=== PATIENT | male | born 1980 | race Caucasian/White ===

== ENCOUNTER 2018-04-01 12:24 | Inpatient (IN) | payer OTHER ==
[2018-04-01 13:47] VITALS: BMI 19.2
--- NOTE | 2018-04-01 18:29 | HP ---
"<Mojgan Felder - Last Filed: 04/01/18 18:59> COWS - Scale Resting Pulse: 0= [place] 80 or Below Sweatin= Beads of Sweat on Face Restless Observation: 3= Extraneous Movement Pupil Size: 2= Moderately Dilated Bone or Joint Aches: 1= Mild Discomfort Runny Nose/ Eye Tearin= Nasal Congestion GI Upset > 30mins: 0= None Tremor Observation: 2= Slight Tremor Visible Yawning Observation: 0= None Anxiety or Irritability: 2=Irritable/Anxious Goose Flesh Skin: 0=Smooth Skin COWS Score: 14 Admission ROS [facility] Chief Complaint: Here for heroin and cocaine detox. Allergies/Adverse Reactions: Allergies Allergy/AdvReac Type Severity Reaction Status Date / Time No Known Allergies Allergy Verified 04/01/18 15:37 History of Present Illness: 37 yom w/ hx heroin dependency since age 18. Has had multiple attempts at detox and rehab. Longest length of sobriety is 1 year. Uses heroin IV daily. Uses a needle exchange program and does not share works. Smokes cocaine and has been using since age 20. Uses about 1-2 x/week. Nicotine use since age 18. Denies seizures.Denies significant PMH/PSH. Search Terms: [place], 1980 Search Date: 04/01/2018 06:20:04 PM The Drug Utilization Report below displays all of the controlled substance prescriptions, if any, that your patient has filled in the last twelve months. The information displayed on this report is compiled from pharmacy submissions to the Department, and accurately reflects the information as submitted by the pharmacies. This report was requested by: Mojgan Felder | Reference #: [id number] There are no results for the search terms that you entered. Exam Limitations: No Limitations - Ebola screening Have you traveled outside of the country in the last 21 days: No Have you had contact with anyone from an Ebola affected area: No Have you been sick,other than usual withdrawal symptoms: No Do you have a fever: No - Review of Systems Constitutional: Chills EENT: reports: Nose Congestion Respiratory: reports: No Symptoms reported Cardiac: reports: No Symptoms Reported GI: reports: Constipated (BM every other day. Denies black or tarry stool.) : reports: No Symptoms Reported Musculoskeletal: reports: Other (Generalized bone pain in arms r/t withdrawal) Integumentary: reports: No Symptoms Reported Neuro: reports: Tremors (r/t withdrawal) Endocrine: reports: No Symptoms Reported Hematology: reports: No Symptoms Reported Psychiatric: reports: Judgement Intact, Orientated x3, Agitated (r/t w/drawal), Anxious (r/t w/drawal), other (Denies thoughts of self-harm) Patient History - Patient Medical History Hx Anemia: No Hx Asthma: No Hx Chronic Obstructive Pulmonary Disease (COPD): No Hx Cancer: No Hx Cardiac Disorders: No Hx Congestive Heart Failure: No Hx Hypertension: No Hx Hypercholesterolemia: No Hx Pacemaker: No HX Cerebrovascular Accident: No Hx Seizures: No Hx Dementia: No Hx Diabetes: No Hx Gastrointestinal Disorders: No Hx Liver Disease: Yes (Hep C) Hx Genitourinary Disorders: No Hx Sexually Transmitted Disorders: No Hx Renal Disease (ESRD): No Hx Thyroid Disease: No Hx Human Immunodeficiency Virus (HIV): No Hx Hepatitis C: Yes (No treatment) Hx Depression: No (Denies suicide or violent ideation) Hx Suicide Attempt: No Hx Bipolar Disorder: No Hx Schizophrenia: No - Patient Surgical History Past Surgical History: Yes Hx Neurologic Surgery: No Hx Cataract Extraction: No Hx Cardiac Surgery: No Hx Lung Surgery: No Hx Breast Surgery: No Hx Breast Biopsy: No Hx Abdominal Surgery: No Hx Appendectomy: No Hx Cholecystectomy: No Hx Genitourinary Surgery: No Hx Section: No Hx Orthopedic Surgery: Yes (right mandible in 2015) Anesthesia Reaction: No - PPD History Previous Implant?: Yes Documented Results: Negative w/o proof Implanted On Prior [facility] Admission?: No PPD to be Administered?: Yes - Smoking Cessation Smoking history: Current every day smoker Have you smoked in the past 12 months: Yes Aproximately how many cigarettes per day: 10 Hx Chewing Tobacco Use: No Initiated information on smoking cessation: Yes 'Breaking Loose' booklet given: 04/01/18 - Substance & Tx. History Hx Alcohol Use: No Hx Substance Use: Yes Substance Use Type: Cocaine, Heroin Hx Substance Use Treatment: Yes (detox and rehab in past. Last detox 4 months ago.) - Substances Abused Heroin Route: Injection Frequency: Daily Amount used: 10 bags Age of first use: 18 Date of Last Use: 03/31/18 Cocaine Route: Smoking Frequency: 1-2 times per week Amount used: 1 gm Age of first use: 20 Date of Last Use: 03/29/18 Admission Physical Exam [facility] - Vital Signs Vital Signs: Vital Signs - 24 hr 04/01/18 13:46 Temperature 97.6 F Pulse Rate 57 L Respiratory 19 Rate Blood Pressure 117/70 - Physical General Appearance: Yes: Mild Distress, Tremorous (Slight tremor hands upon extension), Sweating, Anxious HEENTM: Yes: Hearing grossly Normal, Normocephalic, Normal Voice, NINA (Pupils dilated at 4 mm) Respiratory: Yes: Chest Non-Tender, Lungs Clear, Normal Breath Sounds, No Respiratory Distress Neck: Yes: No masses,lesions,Nodules, Supple Breast: Yes: Breast Exam Deferred Cardiology: Yes: Regular Rhythm, S1, S2, Bradycardia (Heart rate 56.) Abdominal: Yes: Normal Bowel Sounds, Non Tender, Flat, Soft Genitourinary: Yes: Within Normal Limits Back: Yes: Normal Inspection Musculoskeletal: Yes: full range of Motion, Gait Steady Extremities: Yes: Normal Capillary Refill, Normal Range of Motion, Non-Tender, Tremors (Slight tremor of hands upon extension) Neurological: Yes: counter maker II-XII NML intact, Fully Oriented, Alert, Motor Strength 5/5 Integumentary: Yes: Normal Color, Dry, Warm, Track Whitaker (antecubital area. No increased erythema or warmth.), Other (Superficial abrasion on nose and (R) aguilera.) Lymphatic: Yes: Within Normal Limits - Diagnostic (1) Opioid dependence with withdrawal Current Visit: Yes Status: Acute (2) Cocaine abuse, uncomplicated Current Visit: Yes Status: Acute (3) Nicotine dependence with withdrawal Current Visit: Yes Status: Acute Qualifiers: Nicotine product type: cigarettes Qualified Code(s): F17.213 - Nicotine dependence, cigarettes, with withdrawal (4) Bradycardia Current Visit: Yes Status: Chronic (5) Superficial abrasion Current Visit: Yes Status: Acute Cleared for Admission [facility] - Detox or Rehab [facility] Level of Care: Medically Managed Detox Regimen/Protocol: Methadone [facility] Breath Alcohol Content Breath Alcohol Content: 0 Urine Drug Screen - Results Drug Screen Negative: No Urine Drug Screen Results: SAKSHI-Cocaine, OPI-Opiates <Katina Hagan - Last Filed: 04/02/18 12:16> Admission Physical Exam [facility] - Vital Signs Vital Signs: Vital Signs - 24 hr 04/01/18 04/01/18 04/02/18 13:46 21:58 00:30 Temperature 97.6 F 97.9 F Pulse Rate 57 L 62 Respiratory 19 18 18 Rate Blood Pressure 117/70 126/74 04/02/18 04/02/18 04/02/18 03:30 07:57 09:16 Temperature 97.9 F 96.8 F L Pulse Rate 55 L 89 Respiratory 18 16 18 Rate Blood Pressure 121/64 109/75"
[2018-04-01] MEDS ORDERED: MENTHOL/PHENOL 1 EACH UD MM PRN (18:53)
[2018-04-01] MEDS ORDERED: IBUPROFEN 400 MG TABLET (FP) PO PRN (18:53)
[2018-04-01] MEDS ORDERED: MAG HYDROX/AL HYDROX/SIMETH 30 ML UNIT-DOSE CUP PO PRN (18:53)
[2018-04-01] MEDS ORDERED: MAGNESIUM CITRATE 300 ML BOTTLE PO PRN (18:53)
[2018-04-01] MEDS ORDERED: MAGNESIUM HYDROX 2400MG/30ML ORAL SUSPENSION 30 ML CUP PO PRN (18:53)
[2018-04-01] MEDS ORDERED: P-EPHED 60MG/TRIPROLIDI 2.5MG TABLET PO PRN (18:53)
[2018-04-01] MEDS ORDERED: METHADONE HCL 10 MG TABLET (FOR DETOX USE ONLY) PO ONE ×2 (18:53→23:00)
[2018-04-01] MEDS ORDERED: guaiFENesin/D-METHORPHAN HB 10 ML UNIT-DOSE CUPS PO PRN (18:53)
[2018-04-01] MEDS ORDERED: diazePAM 5 MG TABLET PO PRN (18:53)
[2018-04-01] MEDS ORDERED: LOPERAMIDE HCL 2 MG CAPSULE PO PRN (18:53)
[2018-04-01] MEDS ORDERED: ACETAMINOPHEN 325 MG TABLET (FP) PO PRN (18:53)
[2018-04-01] MEDS: NICOTINE POLACRILEX 2 MG GUM BC PRN (20:02)
[2018-04-01] MEDS: BACITRACIN 0.9 GM PACKET TP SCH (23:00)
[2018-04-01] MEDS: THIAMINE HCL 100 MG TABLET (FP) PO SCH (23:01)
--- NOTE | 2018-04-02 08:09 | CONSULT ---
[facility] Psychiatric Consult - Data Date of interview: 04/02/18 Admission source: [facility] Identifying data: This is 37 years old male, 2ingle, with no children, living with brother, unemployed , with no income, wit5h no psychiatric hospitalization history, with long history of Heroin, Cocaine and Nicxotine dependence, reporting withdrawal symptoms and seeking for detox. Substance Abuse History: Smoking history: Current every day smoker. Have you smoked in the past 12 months: Yes. Aproximately how many cigarettes per day: 10. Hx Chewing Tobacco Use: No. Initiated information on smoking cessation: Yes. 'Breaking Loose' booklet given: 04/01/18. - Substance & Tx. History. Hx Alcohol Use: No. Hx Substance Use: Yes. Substance Use Type: Cocaine, Heroin. Hx Substance Use Treatment: Yes (detox and rehab in past. Last detox 4 months ago.). - Substances Abused. Heroin. Route: Injection. Frequency: Daily. Amount used: 10 bags. Age of first use: 18. Date of Last Use: 03/31/18. Cocaine. Route: Smoking. Frequency: 1-2 times per week. Amount used: 1 gm. Age of first use: 20. Date of Last Use: 03/29/18 Medical History: Denies significant medical problems Psychiatric History: Patient reports no psychiatric hospitalization history, no psychiatric medications taking prior to admission Physical/Sexual Abuse/Trauma History: Denies Additional Comment: Observation. Detox Unit Care Protocol Mental Status Exam - Mental Status Exam Alert and Oriented to: Person Cognitive Function: Fair Mood: Sad Affect: Flat Patient Behavior: Sedated Speech Pattern: Delayed Voice Loudness: Mildly Soft/Quiet Thought Process: Circumstantial Thought Disorder: Being Controlled Hallucinations: Denies Suicidal Ideation: Denies Homicidal Ideation: Denies Insight/Judgement: Fair Sleep: Difficulty falling asleep Appetite: Fair Muscle strength/Tone: Mild Hypotonicity Gait/Station: Normal Additional Comments: Observation. Detox Unit Care Protocol Psychiatric Findings - Problem List ([place] 1, 2,3) (1) Drug-induced mood disorder Current Visit: Yes Status: Suspected (2) Cocaine abuse, uncomplicated Current Visit: Yes Status: Acute (3) Nicotine dependence with withdrawal Current Visit: Yes Status: Acute Qualifiers: Nicotine product type: cigarettes Qualified Code(s): F17.213 - Nicotine dependence, cigarettes, with withdrawal (4) Opioid dependence with withdrawal Current Visit: Yes Status: Acute - Initial Treatment Plan Initial Treatment Plan: Observation. Detox Unit Care Protocol
[2018-04-02] MEDS ORDERED: METHADONE HCL 10 MG TABLET (FOR DETOX USE ONLY) PO ONE (10:00)
[2018-04-02] MEDS: PRENATAL VITAMINS W/ FOLIC ACID TABLET (FP) PO SCH (10:09)
[2018-04-02] MEDS: NICOTINE 14 MG/24 HOURS TOPICAL PATCH TD SCH (10:09)
[2018-04-02] MEDS: BACITRACIN 0.9 GM PACKET TP SCH ×2 (10:09→22:20)
[2018-04-02] MEDS: NICOTINE POLACRILEX 2 MG GUM BC PRN (10:10)
[2018-04-02 10:14] LABS: HEMATOCRIT 44.5 % (35.4-49); HEMOGLOBIN 14.7 GM/dL (11.7-16.9); MEAN CELL VOLUME 90.9 fl (80-96); MEAN PLT VOLUME 8.7 fl (7.5-11.1); PLATELET COUNT 341 K/MM3 (134-434); RBC 4.89 M/mm3 (4.00-5.60); WHITE BLOOD COUNT 10.5 K/mm3 (4.0-10.0)
--- NOTE | 2018-04-02 10:47 | EKG ---
Test Reason : Blood Pressure : / mmHG Vent. Rate : 051 BPM Atrial Rate : 051 BPM P-R Int : 136 ms QRS Dur : 084 ms QT Int : 418 ms P-R-T Axes : 038 068 065 degrees QTc Int : 385 ms SINUS BRADYCARDIA OTHERWISE NORMAL ECG NO PREVIOUS ECGS AVAILABLE Confirmed by MAR MASON, PIO ([id number]) on 04/02/2018 10:47:05 AM Referred By: Confirmed By:PIO MANUEL MD
--- NOTE | 2018-04-02 12:24 | PN ---
BHS COWS - Scale Resting Pulse: 0= [place] 80 or Below Sweatin= Chills/Flushing Restless Observation: 3= Extraneous Movement Pupil Size: 1= Pupils >than Normal Bone or Joint Aches: 2= Severe Diffuse Aches Runny Nose/ Eye Tearin= Runny Nose/Eyes GI Upset > 30mins: 2= Nausea/Diarrhea Tremor Observation of Outstretched Hands: 2= Slight Tremor Visible Yawning Observation: 1= 1-2x During Session Anxiety or Irritability: 2=Irritable/Anxious Goose Flesh Skin: 0=Smooth Skin COWS Score: 16 S Progress Note (SOAP) Subjective: alert,irritable,anxious,interrupted sleep,tremor,pain in the body and back Objective: 04/02/18 12:22 Vital Signs Temperature 96.8 F L 04/02/18 09:16 Pulse Rate 89 04/02/18 09:16 Respiratory Rate 18 04/02/18 09:16 Blood Pressure 109/75 04/02/18 09:16 O2 Sat by Pulse Oximetry (%) ekg sinus bradycardia 51/min qt/tc 418/385 Laboratory Last Values WBC 10.5 K/mm3 (4.0-10.0) H 04/02/18 07:30 RBC 4.89 M/mm3 (4.00-5.60) 04/02/18 07:30 Hgb 14.7 GM/dL (11.7-16.9) 04/02/18 07:30 Hct 44.5 % (35.4-49) 04/02/18 07:30 MCV 90.9 fl (80-96) 04/02/18 07:30 MCH 30.0 pg (25.7-33.7) 04/02/18 07:30 MCHC 33.0 g/dl (32.0-35.9) 04/02/18 07:30 RDW 15.0 % (11.9-15.9) 04/02/18 07:30 Plt Count 341 K/MM3 (134-434) 04/02/18 07:30 MPV 8.7 fl (7.5-11.1) 04/02/18 07:30 labs pending Assessment: 04/02/18 12:24 withdrawal symptom Plan: continue detox
[2018-04-02] MEDS ORDERED: CYCLOBENZAPRINE HCL 10 MG TABLET (FP) PO PRN (12:27)
[2018-04-02 14:19] LABS: ALBUMIN 3.5 g/dl (3.4-5.0); ANION GAP 6 (8-16); BILIRUBIN,TOTAL 0.3 mg/dL (0.2-1.0); BLOOD UREA NITROGEN 19 mg/dL (7-18); CALCIUM 9.4 mg/dL (8.5-10.1); CHLORIDE 107 mmol/L (98-107); CO2 30 mmol/L (21-32); GLUCOSE,RANDOM 112 mg/dL (74-106); POTASSIUM 4.6 mmol/L (3.5-5.1); SGOT/AST 61 U/L (15-37); SGPT/ALT 96 U/L (12-78); SODIUM 143 mmol/L (136-145)
[2018-04-02 14:20] LABS: ALK PHOS 124 U/L (45-117); TOT PROT 7.8 g/dl (6.4-8.2)
[2018-04-02 18:20] LABS: URINE APPEARANCE TURBID; URINE BILIRUBIN NEGATIVE (<2.0 mg/dL); URINE COLOR YELLOW; URINE GLUCOSE (UA) NEGATIVE (NEGATIVE); URINE KETONE NEGATIVE (NEGATIVE); URINE LEUK ESTERASE NEGATIVE (NEGATIVE); URINE NITRITE NEGATIVE (NEGATIVE); URINE PROTEIN NEGATIVE (NEGATIVE); URINE UROBILINOGEN NEGATIVE mg/dL (0.2-1.0)
[2018-04-02] MEDS: cloNIDine HCL 0.1 MG TABLET PO SCH (22:20)
[2018-04-02] MEDS: MELATONIN 5 MG TABLETS PO PRN (22:20)
[2018-04-02] MEDS: THIAMINE HCL 100 MG TABLET (FP) PO SCH (22:20)
[2018-04-03] MEDS ORDERED: METHADONE HCL 5 MG TABLET (FOR DETOX USE ONLY) PO ONE (10:00)
[2018-04-03] MEDS: PRENATAL VITAMINS W/ FOLIC ACID TABLET (FP) PO SCH (10:56)
[2018-04-03] MEDS: cloNIDine HCL 0.1 MG TABLET PO SCH ×2 (10:56→22:11)
[2018-04-03] MEDS: NICOTINE 14 MG/24 HOURS TOPICAL PATCH TD SCH (10:56)
[2018-04-03] MEDS: BACITRACIN 0.9 GM PACKET TP SCH ×2 (10:57→22:11)
--- NOTE | 2018-04-03 11:32 | PN ---
BHS COWS - Scale Resting Pulse: 0= [place] 80 or Below Sweatin= Chills/Flushing Restless Observation: 3= Extraneous Movement Pupil Size: 1= Pupils >than Normal Bone or Joint Aches: 2= Severe Diffuse Aches Runny Nose/ Eye Tearin= Runny Nose/Eyes GI Upset > 30mins: 2= Nausea/Diarrhea Tremor Observation of Outstretched Hands: 2= Slight Tremor Visible Yawning Observation: 1= 1-2x During Session Anxiety or Irritability: 2=Irritable/Anxious Goose Flesh Skin: 0=Smooth Skin COWS Score: 16 BHS Progress Note (SOAP) Subjective: alert,irritable,anxious,tremor,pain in the body and back Objective: 04/03/18 11:30 Vital Signs Temperature 98 F 04/03/18 09:22 Pulse Rate 59 L 04/03/18 09:22 Respiratory Rate 18 04/03/18 09:22 Blood Pressure 114/58 04/03/18 09:22 O2 Sat by Pulse Oximetry (%) Laboratory Last Values WBC 10.5 K/mm3 (4.0-10.0) H 04/02/18 07:30 RBC 4.89 M/mm3 (4.00-5.60) 04/02/18 07:30 Hgb 14.7 GM/dL (11.7-16.9) 04/02/18 07:30 Hct 44.5 % (35.4-49) 04/02/18 07:30 MCV 90.9 fl (80-96) 04/02/18 07:30 MCH 30.0 pg (25.7-33.7) 04/02/18 07:30 MCHC 33.0 g/dl (32.0-35.9) 04/02/18 07:30 RDW 15.0 % (11.9-15.9) 04/02/18 07:30 Plt Count 341 K/MM3 (134-434) 04/02/18 07:30 MPV 8.7 fl (7.5-11.1) 04/02/18 07:30 Sodium 143 mmol/L (136-145) 04/02/18 07:30 Potassium 4.6 mmol/L (3.5-5.1) 04/02/18 07:30 Chloride 107 mmol/L (98-107) 04/02/18 07:30 Carbon Dioxide 30 mmol/L (21-32) 04/02/18 07:30 Anion Gap 6 (8-16) L 04/02/18 07:30 BUN 19 mg/dL (7-18) H 04/02/18 07:30 Creatinine 1.0 mg/dL (0.7-1.3) 04/02/18 07:30 Creat Clearance w eGFR > 60 (>60) 04/02/18 07:30 Random Glucose 112 mg/dL (74-106) H 04/02/18 07:30 Calcium 9.4 mg/dL (8.5-10.1) 04/02/18 07:30 Total Bilirubin 0.3 mg/dL (0.2-1.0) 04/02/18 07:30 AST 61 U/L (15-37) H 04/02/18 07:30 ALT 96 U/L (12-78) H 04/02/18 07:30 Alkaline Phosphatase 124 U/L (45-117) H 04/02/18 07:30 Total Protein 7.8 g/dl (6.4-8.2) 04/02/18 07:30 Albumin 3.5 g/dl (3.4-5.0) 04/02/18 07:30 Urine Color Yellow 04/02/18 17:00 Urine Appearance Turbid 04/02/18 17:00 Urine pH 6.0 (5.0-8.0) 04/02/18 17:00 Ur Specific [place] 1.026 (1.001-1.035) 04/02/18 17:00 Urine Protein Negative (NEGATIVE) 04/02/18 17:00 Urine Glucose (UA) Negative (NEGATIVE) 04/02/18 17:00 Urine Ketones Negative (NEGATIVE) 04/02/18 17:00 Urine Blood Negative (NEGATIVE) 04/02/18 17:00 Urine Nitrite Negative (NEGATIVE) 04/02/18 17:00 Urine Bilirubin Negative (<2.0 mg/dL) 04/02/18 17:00 Urine Urobilinogen Negative mg/dL (0.2-1.0) 04/02/18 17:00 Ur Leukocyte Esterase Negative (NEGATIVE) 04/02/18 17:00 RPR Titer Nonreactive (NONREACTIVE) 04/02/18 07:30 Assessment: 04/03/18 11:31 withdrawal symptom Plan: continue detox
[2018-04-03] MEDS: THIAMINE HCL 100 MG TABLET (FP) PO SCH (22:11)
[2018-04-04] MEDS ORDERED: METHADONE HCL 5 MG TABLET (FOR DETOX USE ONLY) PO ONE (10:00)
[2018-04-04] MEDS: BACITRACIN 0.9 GM PACKET TP SCH ×2 (10:18→22:13)
[2018-04-04] MEDS: NICOTINE 14 MG/24 HOURS TOPICAL PATCH TD SCH (10:18)
[2018-04-04] MEDS: PRENATAL VITAMINS W/ FOLIC ACID TABLET (FP) PO SCH (10:18)
[2018-04-04] MEDS: cloNIDine HCL 0.1 MG TABLET PO SCH ×2 (10:18→22:13)
--- NOTE | 2018-04-04 11:08 | PN ---
BHS Progress Note (SOAP) Subjective: alert,irritable,anxious,interrupted sleep,pain in the body Objective: 04/04/18 11:08 Vital Signs Temperature 98.1 F 04/04/18 09:46 Pulse Rate 66 04/04/18 09:46 Respiratory Rate 20 04/04/18 09:46 Blood Pressure 105/54 04/04/18 09:46 O2 Sat by Pulse Oximetry (%) Assessment: 04/04/18 11:08 withdrawal symptom Plan: continue detox
[2018-04-04] MEDS: THIAMINE HCL 100 MG TABLET (FP) PO SCH (22:13)
[2018-04-04] MEDS: MELATONIN 5 MG TABLETS PO PRN (22:14)
--- NOTE | 2018-04-05 08:56 | PN ---
S Progress Note (SOAP) Subjective: alert,irritable,anxious,interrupted sleep,pain in the body Objective: 04/05/18 08:55 Vital Signs Temperature 98.4 F 04/05/18 07:30 Pulse Rate 70 04/05/18 07:30 Respiratory Rate 18 04/05/18 07:30 Blood Pressure 106/54 04/05/18 07:30 O2 Sat by Pulse Oximetry (%) Assessment: 04/05/18 08:55 withdrawal symptom Plan: continue detox,discharge in am
[2018-04-05] MEDS ORDERED: METHADONE HCL 10 MG TABLET (FOR DETOX USE ONLY) PO ONE (10:00)
[2018-04-05] MEDS: PRENATAL VITAMINS W/ FOLIC ACID TABLET (FP) PO SCH (10:43)
[2018-04-05] MEDS: BACITRACIN 0.9 GM PACKET TP SCH ×2 (10:43→22:18)
[2018-04-05] MEDS: cloNIDine HCL 0.1 MG TABLET PO SCH ×2 (10:43→22:18)
[2018-04-05] MEDS: NICOTINE 14 MG/24 HOURS TOPICAL PATCH TD SCH (10:45)
[2018-04-05] MEDS: THIAMINE HCL 100 MG TABLET (FP) PO SCH (22:18)
[2018-04-05] MEDS: hydrOXYzine PAMOATE 50 MG CAPSULE (FP) PO PRN (22:20)
[2018-04-06] MEDS ORDERED: METHADONE HCL 5 MG TABLET (FOR DETOX USE ONLY) PO ONE (06:00)
--- NOTE | 2018-04-06 09:10 | PN ---
BHS Progress Note (SOAP) Subjective: mild opiate withdrawal sx less body ache muscle cramping sleep better at night Objective: 04/06/18 09:39 opiate withdrawal sx Vital Signs Temperature 98.2 F 04/06/18 07:42 Pulse Rate 68 04/06/18 07:42 Respiratory Rate 18 04/06/18 07:42 Blood Pressure 115/63 04/06/18 07:42 O2 Sat by Pulse Oximetry (%) Laboratory Last Values WBC 10.5 K/mm3 (4.0-10.0) H 04/02/18 07:30 RBC 4.89 M/mm3 (4.00-5.60) 04/02/18 07:30 Hgb 14.7 GM/dL (11.7-16.9) 04/02/18 07:30 Hct 44.5 % (35.4-49) 04/02/18 07:30 MCV 90.9 fl (80-96) 04/02/18 07:30 MCH 30.0 pg (25.7-33.7) 04/02/18 07:30 MCHC 33.0 g/dl (32.0-35.9) 04/02/18 07:30 RDW 15.0 % (11.9-15.9) 04/02/18 07:30 Plt Count 341 K/MM3 (134-434) 04/02/18 07:30 MPV 8.7 fl (7.5-11.1) 04/02/18 07:30 Sodium 143 mmol/L (136-145) 04/02/18 07:30 Potassium 4.6 mmol/L (3.5-5.1) 04/02/18 07:30 Chloride 107 mmol/L (98-107) 04/02/18 07:30 Carbon Dioxide 30 mmol/L (21-32) 04/02/18 07:30 Anion Gap 6 (8-16) L 04/02/18 07:30 BUN 19 mg/dL (7-18) H 04/02/18 07:30 Creatinine 1.0 mg/dL (0.7-1.3) 04/02/18 07:30 Creat Clearance w eGFR > 60 (>60) 04/02/18 07:30 Random Glucose 112 mg/dL (74-106) H 04/02/18 07:30 Calcium 9.4 mg/dL (8.5-10.1) 04/02/18 07:30 Total Bilirubin 0.3 mg/dL (0.2-1.0) 04/02/18 07:30 AST 61 U/L (15-37) H 04/02/18 07:30 ALT 96 U/L (12-78) H 04/02/18 07:30 Alkaline Phosphatase 124 U/L (45-117) H 04/02/18 07:30 Total Protein 7.8 g/dl (6.4-8.2) 04/02/18 07:30 Albumin 3.5 g/dl (3.4-5.0) 04/02/18 07:30 Urine Color Yellow 04/02/18 17:00 Urine Appearance Turbid 04/02/18 17:00 Urine pH 6.0 (5.0-8.0) 04/02/18 17:00 Ur Specific [place] 1.026 (1.001-1.035) 04/02/18 17:00 Urine Protein Negative (NEGATIVE) 04/02/18 17:00 Urine Glucose (UA) Negative (NEGATIVE) 04/02/18 17:00 Urine Ketones Negative (NEGATIVE) 04/02/18 17:00 Urine Blood Negative (NEGATIVE) 04/02/18 17:00 Urine Nitrite Negative (NEGATIVE) 04/02/18 17:00 Urine Bilirubin Negative (<2.0 mg/dL) 04/02/18 17:00 Urine Urobilinogen Negative mg/dL (0.2-1.0) 04/02/18 17:00 Ur Leukocyte Esterase Negative (NEGATIVE) 04/02/18 17:00 RPR Titer Nonreactive (NONREACTIVE) 04/02/18 07:30 lab noted Assessment: 04/06/18 09:41 mild opiate withdrawal sx Plan: medically supervised opiate detox
[2018-04-06] MEDS: NICOTINE 14 MG/24 HOURS TOPICAL PATCH TD SCH (10:34)
[2018-04-06] MEDS: PRENATAL VITAMINS W/ FOLIC ACID TABLET (FP) PO SCH (10:34)
[2018-04-06] MEDS: BACITRACIN 0.9 GM PACKET TP SCH ×2 (10:35→22:17)
[2018-04-06] MEDS: cloNIDine HCL 0.1 MG TABLET PO SCH ×2 (10:35→22:17)
[2018-04-06] MEDS: THIAMINE HCL 100 MG TABLET (FP) PO SCH (22:17)
[2018-04-06] MEDS: hydrOXYzine PAMOATE 50 MG CAPSULE (FP) PO PRN (22:18)
--- NOTE | 2018-04-07 08:49 | PN ---
S Progress Note (SOAP) Subjective: alert,no complaint Objective: 04/07/18 08:48 Vital Signs Temperature 98.4 F 04/07/18 07:06 Pulse Rate 70 04/07/18 07:06 Respiratory Rate 18 04/07/18 07:06 Blood Pressure 119/65 04/07/18 07:06 O2 Sat by Pulse Oximetry (%) Assessment: 04/07/18 08:48 detox completed,no withdrawal symptom Plan: discharge today,[facility] as arrangement
--- NOTE | 2018-04-07 08:53 | DS ---
[facility] Detox Discharge Summary Admission Date: 04/01/18 Discharge Date: 04/07/18 - History Present History: Cocaine Dependence, Opioid Dependence Additional Comments: follow up with [facility] as arrangement Pertinent Past History: nicotine dependence - Physical Exam Results Vital Signs: Vital Signs Temperature 98.4 F 04/07/18 07:06 Pulse Rate 70 04/07/18 07:06 Respiratory Rate 18 04/07/18 07:06 Blood Pressure 119/65 04/07/18 07:06 O2 Sat by Pulse Oximetry (%) Pertinent Admission Physical Exam Findings: withdrawal signs and symptom Vital Signs Temperature 98.4 F 04/07/18 07:06 Pulse Rate 70 04/07/18 07:06 Respiratory Rate 18 04/07/18 07:06 Blood Pressure 119/65 04/07/18 07:06 O2 Sat by Pulse Oximetry (%) Laboratory Last Values WBC 10.5 K/mm3 (4.0-10.0) H 04/02/18 07:30 RBC 4.89 M/mm3 (4.00-5.60) 04/02/18 07:30 Hgb 14.7 GM/dL (11.7-16.9) 04/02/18 07:30 Hct 44.5 % (35.4-49) 04/02/18 07:30 MCV 90.9 fl (80-96) 04/02/18 07:30 MCH 30.0 pg (25.7-33.7) 04/02/18 07:30 MCHC 33.0 g/dl (32.0-35.9) 04/02/18 07:30 RDW 15.0 % (11.9-15.9) 04/02/18 07:30 Plt Count 341 K/MM3 (134-434) 04/02/18 07:30 MPV 8.7 fl (7.5-11.1) 04/02/18 07:30 Sodium 143 mmol/L (136-145) 04/02/18 07:30 Potassium 4.6 mmol/L (3.5-5.1) 04/02/18 07:30 Chloride 107 mmol/L (98-107) 04/02/18 07:30 Carbon Dioxide 30 mmol/L (21-32) 04/02/18 07:30 Anion Gap 6 (8-16) L 04/02/18 07:30 BUN 19 mg/dL (7-18) H 04/02/18 07:30 Creatinine 1.0 mg/dL (0.7-1.3) 04/02/18 07:30 Creat Clearance w eGFR > 60 (>60) 04/02/18 07:30 Random Glucose 112 mg/dL (74-106) H 04/02/18 07:30 Calcium 9.4 mg/dL (8.5-10.1) 04/02/18 07:30 Total Bilirubin 0.3 mg/dL (0.2-1.0) 04/02/18 07:30 AST 61 U/L (15-37) H 04/02/18 07:30 ALT 96 U/L (12-78) H 04/02/18 07:30 Alkaline Phosphatase 124 U/L (45-117) H 04/02/18 07:30 Total Protein 7.8 g/dl (6.4-8.2) 04/02/18 07:30 Albumin 3.5 g/dl (3.4-5.0) 04/02/18 07:30 Urine Color Yellow 04/02/18 17:00 Urine Appearance Turbid 04/02/18 17:00 Urine pH 6.0 (5.0-8.0) 04/02/18 17:00 Ur Specific [place] 1.026 (1.001-1.035) 04/02/18 17:00 Urine Protein Negative (NEGATIVE) 04/02/18 17:00 Urine Glucose (UA) Negative (NEGATIVE) 04/02/18 17:00 Urine Ketones Negative (NEGATIVE) 04/02/18 17:00 Urine Blood Negative (NEGATIVE) 04/02/18 17:00 Urine Nitrite Negative (NEGATIVE) 04/02/18 17:00 Urine Bilirubin Negative (<2.0 mg/dL) 04/02/18 17:00 Urine Urobilinogen Negative mg/dL (0.2-1.0) 04/02/18 17:00 Ur Leukocyte Esterase Negative (NEGATIVE) 04/02/18 17:00 RPR Titer Nonreactive (NONREACTIVE) 04/02/18 07:30 - Treatment Hospital Course: Detox Protocol Followed, Detoxed Safely, Responded well, Discharged Condition Good, Rehab Referral Accepted Patient has Accepted a Re[facility] Referral to: [facility] - Medication Discharge Medications: Ambulatory Orders NK [No Known Home Medication] 04/01/18 - Diagnosis (1) Opioid dependence with withdrawal Current Visit: Yes Status: Acute (2) Cocaine abuse, uncomplicated Current Visit: Yes Status: Acute (3) Nicotine dependence with withdrawal Current Visit: Yes Status: Acute Qualifiers: Nicotine product type: cigarettes Qualified Code(s): F17.213 - Nicotine dependence, cigarettes, with withdrawal (4) Bradycardia Current Visit: Yes Status: Chronic (5) Drug-induced mood disorder Current Visit: Yes Status: Suspected - AMA Did Patient Leave Against Medical Advice: No
[2018-04-07 09:51] VITALS: BP 139/78; PULSE 106; TEMP 98.2
[2018-04-07] MEDS: BACITRACIN 0.9 GM PACKET TP SCH (10:25)
[2018-04-07] MEDS: cloNIDine HCL 0.1 MG TABLET PO SCH (10:25)
[2018-04-07] MEDS: NICOTINE 14 MG/24 HOURS TOPICAL PATCH TD SCH (10:25)
[2018-04-07] MEDS: PRENATAL VITAMINS W/ FOLIC ACID TABLET (FP) PO SCH (10:25)
== END 2018-04-07 12:57 | disposition other institution (70) | DRG 773 ==
LOC: YASAS 12:24 → Y6N 17:06
PROVIDERS: ADMIT Surgery; ATTEND Surgery
PROC: HZ2ZZZZ Detoxification Services for Substance Abuse Treatment (ICD-10-PCS; principal; 2018-04-01)
DX: F11.23 Opioid dependence with withdrawal (principal); F14.20 Cocaine dependence, uncomplicated; F17.213 Nicotine dependence, cigarettes, with withdrawal; F19.24 Other psychoactive substance dependence with psychoactive substance-induced mood disorder; R00.1 Bradycardia, unspecified; B18.2 Chronic viral hepatitis C
CPT/HCPCS: 36415; 80053; 81003; 85027; 86593; 93005; 93010; J0735

== ENCOUNTER 2018-04-07 13:04 | Inpatient (IN) | payer OTHER ==
[2018-04-07] MEDS ORDERED: MENTHOL/PHENOL 1 EACH UD MM PRN (16:24)
[2018-04-07] MEDS ORDERED: MAGNESIUM CITRATE 300 ML BOTTLE PO PRN (16:24)
[2018-04-07] MEDS ORDERED: LOPERAMIDE HCL 2 MG CAPSULE PO PRN (16:24)
[2018-04-07] MEDS ORDERED: MAG HYDROX/AL HYDROX/SIMETH 30 ML UNIT-DOSE CUP PO PRN (16:24)
[2018-04-07] MEDS ORDERED: IBUPROFEN 400 MG TABLET (FP) PO PRN (16:24)
[2018-04-07] MEDS ORDERED: guaiFENesin/D-METHORPHAN HB 10 ML UNIT-DOSE CUPS PO PRN (16:24)
[2018-04-07] MEDS ORDERED: MAGNESIUM HYDROX 2400MG/30ML ORAL SUSPENSION 30 ML CUP PO PRN (16:24)
[2018-04-07] MEDS ORDERED: NICOTINE POLACRILEX 2 MG GUM BUC PRN (16:25)
--- NOTE | 2018-04-07 16:31 | HP ---
JULIA MASON Rehab Assess/Revision - Admission History Admitted to Rehab from: [address] - Vital signs Vital Signs: Vital Signs Period Temp Pulse Resp BP Sys/Abbott Pulse Ox Last 24 Hr 98.6 F 105 18 126/71 - Findings Detox History & Physical reviewed: Yes Concur with findings: Yes Inpatient Rehab Admission - Initial Determination Are CD services needed?: Yes Free of communicable disease: Yes Not in need of hospitalization: Yes - Rehab Admission Criteria Previous failed treatment: Yes Poor recovery environment: Yes Comorbidities: Yes Lacks judgement: Yes Patient is meeting Inpatient Rehab admission criteria:: Yes
[2018-04-07] MEDS: THIAMINE HCL 100 MG TABLET (FP) PO SCH (22:07)
[2018-04-08] MEDS: ACETAMINOPHEN 325 MG TABLET (FP) PO PRN (10:53)
[2018-04-08] MEDS: P-EPHED 60MG/TRIPROLIDI 2.5MG TABLET PO PRN ×2 (10:53→21:57)
[2018-04-08] MEDS: NICOTINE 14 MG/24 HOURS TOPICAL PATCH TD SCH (10:54)
[2018-04-08] MEDS: PRENATAL VITAMINS W/ FOLIC ACID TABLET (FP) PO SCH (10:54)
[2018-04-08] MEDS: MELATONIN 5 MG TABLETS PO PRN (21:57)
[2018-04-08] MEDS: THIAMINE HCL 100 MG TABLET (FP) PO SCH (21:57)
--- NOTE | 2018-04-09 09:06 | HP ---
Psychiatrist Admission - Data Date of interview: 04/09/18 Admission source: 6N Identifying data: This is the first [facility] admission for this 37 years old single male, employed in construction , domiciled living with his brother Medical History: Significant for hepatitis C and history of surgery for fracture right mandible in 2015. Smokes 10 cigarettes daily Psychiatric History: Denies history of previous psychiatric treatment Physical/Sexual Abuse/Trauma History: Denies history of emotional, physical or sexual as well as DV relationship. No service Additional Comment: Reports history of 5 previous arrests including 2 felony convictions. Denies being on parole/probation at present Vital Signs: Vital Signs - 24 hr 04/09/18 04/09/18 04/09/18 01:28 03:30 06:53 Temperature 99.2 F Pulse Rate 97 H Respiratory 18 Rate Blood Pressure 127/73 Allergies/Adverse Reactions: Allergies Allergy/AdvReac Type Severity Reaction Status Date / Time No Known Allergies Allergy Verified 04/01/18 15:37 Date of last physical exam: 04/01/18 Concur with the findings of this exam: Yes - Substance Abuse/Tx History Hx Alcohol Use: No Hx Substance Use: Yes Substance Use Type: Cocaine (Started smoking crack cocaine at age 20, consumes one gram 1-3 times weekly. Last smoked on 03/29/18), Heroin (Started using heroin at age 18, consumes 10 bags daily. Last used on 03/31/18) Hx Substance Use Treatment: Yes (2 previous inpt detox & one inpt rehab) Mental Status Exam - Mental Status Exam Alert and Oriented to: Time, Place, Person Cognitive Function: Fair Patient Appearance: Well Groomed Mood: Hopeful, Euthymic Patient Behavior: Cooperative Voice Loudness: Normal Thought Process: Intact Thought Disorder: Not Present Hallucinations: Denies Suicidal Ideation: Denies Homicidal Ideation: Denies Insight/Judgement: Fair Sleep: Poorly Appetite: Good Muscle strength/Tone: Normal Gait/Station: Normal Psychiatric Findings - Problem List ([place] 1, 2,3) (1) Opioid dependence Current Visit: Yes Status: Acute (2) Cocaine dependence Current Visit: Yes Status: Acute (3) Nicotine dependence Current Visit: Yes Status: Acute (4) Substance-induced sleep disorder Current Visit: Yes Status: Acute (5) Hepatitis C Current Visit: Yes Status: Chronic - Initial Treatment Plan Initial Treatment Plan: 1) Start Belsomra 10 mg po HS prn for insomnia. 2) Monitor progress
[2018-04-09] MEDS: P-EPHED 60MG/TRIPROLIDI 2.5MG TABLET PO PRN ×2 (09:39→22:15)
[2018-04-09] MEDS: ACETAMINOPHEN 325 MG TABLET (FP) PO PRN (09:39)
[2018-04-09] MEDS: PRENATAL VITAMINS W/ FOLIC ACID TABLET (FP) PO SCH (09:39)
[2018-04-09] MEDS: NICOTINE 14 MG/24 HOURS TOPICAL PATCH TD SCH (09:40)
[2018-04-09] MEDS ORDERED: SUVOREXANT 10 MG TABLET PO PRN (22:00)
[2018-04-09] MEDS: THIAMINE HCL 100 MG TABLET (FP) PO SCH (22:14)
[2018-04-10] MEDS: P-EPHED 60MG/TRIPROLIDI 2.5MG TABLET PO PRN ×2 (06:21→21:36)
[2018-04-10] MEDS: PRENATAL VITAMINS W/ FOLIC ACID TABLET (FP) PO SCH (10:09)
[2018-04-10] MEDS: NICOTINE 14 MG/24 HOURS TOPICAL PATCH TD SCH (10:10)
--- NOTE | 2018-04-10 13:18 | PN ---
[facility] Progress Note Note: Vital Signs Temperature 98.6 F 04/10/18 13:06 Pulse Rate 99 H 04/10/18 07:18 Respiratory Rate 16 04/10/18 07:18 Blood Pressure 135/78 04/10/18 07:18 O2 Sat by Pulse Oximetry (%) c/o of fatigue, sweats, cough, nasal congestion, body aches, sore throat x 3 days. Last ,abs reviewed mild elevated WBC 10.5. + sweats + pharyngeal erythema + nasal congestion no tenderness s1 s2 lungs clear - URI Plan: Zpack guafinessin PRN increase fluids flonase continue to monitor
[2018-04-10] MEDS ORDERED: AZITHROMYCIN 250 MG TABLET PO ONE (13:45)
[2018-04-10] MEDS: FLUTICASONE PROP 0.05% 16 GM NASAL SPRAY NS SCH (14:24)
[2018-04-10] MEDS: MELATONIN 5 MG TABLETS PO PRN (21:36)
[2018-04-10] MEDS: THIAMINE HCL 100 MG TABLET (FP) PO SCH (21:36)
[2018-04-11] MEDS: AZITHROMYCIN 250 MG TABLET PO SCH (10:44)
[2018-04-11] MEDS: PRENATAL VITAMINS W/ FOLIC ACID TABLET (FP) PO SCH (10:44)
[2018-04-11] MEDS: NICOTINE 14 MG/24 HOURS TOPICAL PATCH TD SCH (10:44)
[2018-04-11] MEDS: P-EPHED 60MG/TRIPROLIDI 2.5MG TABLET PO PRN ×2 (10:46→21:35)
[2018-04-11] MEDS: FLUTICASONE PROP 0.05% 16 GM NASAL SPRAY NS SCH (10:46)
[2018-04-11] MEDS: MELATONIN 5 MG TABLETS PO PRN (21:35)
[2018-04-11] MEDS: THIAMINE HCL 100 MG TABLET (FP) PO SCH (21:35)
[2018-04-12] MEDS: FLUTICASONE PROP 0.05% 16 GM NASAL SPRAY NS SCH (10:22)
[2018-04-12] MEDS: AZITHROMYCIN 250 MG TABLET PO SCH (10:23)
[2018-04-12] MEDS: PRENATAL VITAMINS W/ FOLIC ACID TABLET (FP) PO SCH (10:23)
[2018-04-12] MEDS: NICOTINE 14 MG/24 HOURS TOPICAL PATCH TD SCH (10:23)
[2018-04-12] MEDS: P-EPHED 60MG/TRIPROLIDI 2.5MG TABLET PO PRN ×2 (10:24→21:57)
[2018-04-12] MEDS: THIAMINE HCL 100 MG TABLET (FP) PO SCH (21:56)
[2018-04-12] MEDS: MELATONIN 5 MG TABLETS PO PRN (21:57)
[2018-04-13] MEDS: FLUTICASONE PROP 0.05% 16 GM NASAL SPRAY NS SCH (10:34)
[2018-04-13] MEDS: P-EPHED 60MG/TRIPROLIDI 2.5MG TABLET PO PRN (10:35)
[2018-04-13] MEDS: PRENATAL VITAMINS W/ FOLIC ACID TABLET (FP) PO SCH (10:35)
[2018-04-13] MEDS: NICOTINE 14 MG/24 HOURS TOPICAL PATCH TD SCH (10:36)
[2018-04-13] MEDS: MELATONIN 5 MG TABLETS PO PRN (21:57)
[2018-04-13] MEDS: THIAMINE HCL 100 MG TABLET (FP) PO SCH (21:57)
[2018-04-14] MEDS: PRENATAL VITAMINS W/ FOLIC ACID TABLET (FP) PO SCH (10:27)
[2018-04-14] MEDS: FLUTICASONE PROP 0.05% 16 GM NASAL SPRAY NS SCH (10:27)
[2018-04-14] MEDS: NICOTINE 14 MG/24 HOURS TOPICAL PATCH TD SCH (10:27)
[2018-04-14] MEDS: THIAMINE HCL 100 MG TABLET (FP) PO SCH (21:37)
[2018-04-14] MEDS: MELATONIN 5 MG TABLETS PO PRN (21:37)
[2018-04-15] MEDS: NICOTINE 14 MG/24 HOURS TOPICAL PATCH TD SCH (10:36)
[2018-04-15] MEDS: PRENATAL VITAMINS W/ FOLIC ACID TABLET (FP) PO SCH (10:36)
[2018-04-15] MEDS: FLUTICASONE PROP 0.05% 16 GM NASAL SPRAY NS SCH (10:36)
[2018-04-15] MEDS: THIAMINE HCL 100 MG TABLET (FP) PO SCH (21:45)
[2018-04-15] MEDS: MELATONIN 5 MG TABLETS PO PRN (21:46)
[2018-04-16] MEDS: PRENATAL VITAMINS W/ FOLIC ACID TABLET (FP) PO SCH (10:44)
[2018-04-16] MEDS: FLUTICASONE PROP 0.05% 16 GM NASAL SPRAY NS SCH (10:44)
[2018-04-16] MEDS: NICOTINE 14 MG/24 HOURS TOPICAL PATCH TD SCH (10:45)
[2018-04-16] MEDS: MELATONIN 5 MG TABLETS PO PRN (21:38)
[2018-04-16] MEDS: hydrOXYzine PAMOATE 50 MG CAPSULE (FP) PO PRN (21:39)
[2018-04-16] MEDS: THIAMINE HCL 100 MG TABLET (FP) PO SCH (21:39)
[2018-04-17] MEDS: FLUTICASONE PROP 0.05% 16 GM NASAL SPRAY NS SCH (11:05)
[2018-04-17] MEDS: PRENATAL VITAMINS W/ FOLIC ACID TABLET (FP) PO SCH (11:05)
[2018-04-17] MEDS: NICOTINE 14 MG/24 HOURS TOPICAL PATCH TD SCH (11:06)
[2018-04-17] MEDS: THIAMINE HCL 100 MG TABLET (FP) PO SCH (22:05)
[2018-04-17] MEDS: hydrOXYzine PAMOATE 50 MG CAPSULE (FP) PO PRN (22:06)
[2018-04-18] MEDS: FLUTICASONE PROP 0.05% 16 GM NASAL SPRAY NS SCH (10:53)
[2018-04-18] MEDS: NICOTINE 14 MG/24 HOURS TOPICAL PATCH TD SCH (10:54)
[2018-04-18] MEDS: PRENATAL VITAMINS W/ FOLIC ACID TABLET (FP) PO SCH (10:54)
[2018-04-18] MEDS: hydrOXYzine PAMOATE 50 MG CAPSULE (FP) PO PRN (21:41)
[2018-04-18] MEDS: THIAMINE HCL 100 MG TABLET (FP) PO SCH (21:41)
[2018-04-19] MEDS: NICOTINE 14 MG/24 HOURS TOPICAL PATCH TD SCH (10:31)
[2018-04-19] MEDS: FLUTICASONE PROP 0.05% 16 GM NASAL SPRAY NS SCH (10:31)
[2018-04-19] MEDS: PRENATAL VITAMINS W/ FOLIC ACID TABLET (FP) PO SCH (10:31)
[2018-04-19] MEDS: hydrOXYzine PAMOATE 50 MG CAPSULE (FP) PO PRN (22:15)
[2018-04-19] MEDS: THIAMINE HCL 100 MG TABLET (FP) PO SCH (22:15)
[2018-04-20] MEDS: PRENATAL VITAMINS W/ FOLIC ACID TABLET (FP) PO SCH (10:43)
[2018-04-20] MEDS: FLUTICASONE PROP 0.05% 16 GM NASAL SPRAY NS SCH (10:43)
[2018-04-20] MEDS: NICOTINE 14 MG/24 HOURS TOPICAL PATCH TD SCH (10:43)
[2018-04-20] MEDS: THIAMINE HCL 100 MG TABLET (FP) PO SCH (22:09)
[2018-04-20] MEDS: hydrOXYzine PAMOATE 50 MG CAPSULE (FP) PO PRN (22:09)
[2018-04-21] MEDS: PRENATAL VITAMINS W/ FOLIC ACID TABLET (FP) PO SCH (10:22)
[2018-04-21] MEDS: FLUTICASONE PROP 0.05% 16 GM NASAL SPRAY NS SCH (10:22)
[2018-04-21] MEDS: NICOTINE 14 MG/24 HOURS TOPICAL PATCH TD SCH (10:22)
[2018-04-21] MEDS: THIAMINE HCL 100 MG TABLET (FP) PO SCH (21:42)
[2018-04-21] MEDS: hydrOXYzine PAMOATE 50 MG CAPSULE (FP) PO PRN (21:43)
[2018-04-22] MEDS: PRENATAL VITAMINS W/ FOLIC ACID TABLET (FP) PO SCH (10:41)
[2018-04-22] MEDS: FLUTICASONE PROP 0.05% 16 GM NASAL SPRAY NS SCH (10:42)
[2018-04-22] MEDS: NICOTINE 14 MG/24 HOURS TOPICAL PATCH TD SCH (10:42)
[2018-04-22] MEDS: THIAMINE HCL 100 MG TABLET (FP) PO SCH (22:00)
[2018-04-22] MEDS: hydrOXYzine PAMOATE 50 MG CAPSULE (FP) PO PRN (22:00)
[2018-04-23] MEDS: NICOTINE 14 MG/24 HOURS TOPICAL PATCH TD SCH (10:46)
[2018-04-23] MEDS: PRENATAL VITAMINS W/ FOLIC ACID TABLET (FP) PO SCH (10:46)
[2018-04-23] MEDS: FLUTICASONE PROP 0.05% 16 GM NASAL SPRAY NS SCH (10:46)
[2018-04-23] MEDS: hydrOXYzine PAMOATE 50 MG CAPSULE (FP) PO PRN (21:41)
[2018-04-23] MEDS: THIAMINE HCL 100 MG TABLET (FP) PO SCH (21:41)
[2018-04-24] MEDS: PRENATAL VITAMINS W/ FOLIC ACID TABLET (FP) PO SCH (10:54)
[2018-04-24] MEDS: NICOTINE 14 MG/24 HOURS TOPICAL PATCH TD SCH (10:55)
[2018-04-24] MEDS: FLUTICASONE PROP 0.05% 16 GM NASAL SPRAY NS SCH (10:55)
[2018-04-24] MEDS: THIAMINE HCL 100 MG TABLET (FP) PO SCH (21:56)
[2018-04-24] MEDS: hydrOXYzine PAMOATE 50 MG CAPSULE (FP) PO PRN (21:57)
[2018-04-25] MEDS: FLUTICASONE PROP 0.05% 16 GM NASAL SPRAY NS SCH (10:41)
[2018-04-25] MEDS: NICOTINE 14 MG/24 HOURS TOPICAL PATCH TD SCH (10:41)
[2018-04-25] MEDS: PRENATAL VITAMINS W/ FOLIC ACID TABLET (FP) PO SCH (10:41)
[2018-04-25] MEDS: THIAMINE HCL 100 MG TABLET (FP) PO SCH (21:31)
[2018-04-25] MEDS: hydrOXYzine PAMOATE 50 MG CAPSULE (FP) PO PRN (21:31)
[2018-04-26] MEDS: NICOTINE 14 MG/24 HOURS TOPICAL PATCH TD SCH (10:35)
[2018-04-26] MEDS: PRENATAL VITAMINS W/ FOLIC ACID TABLET (FP) PO SCH (10:35)
[2018-04-26] MEDS: FLUTICASONE PROP 0.05% 16 GM NASAL SPRAY NS SCH (10:35)
[2018-04-26] MEDS: THIAMINE HCL 100 MG TABLET (FP) PO SCH (21:41)
[2018-04-26] MEDS: hydrOXYzine PAMOATE 50 MG CAPSULE (FP) PO PRN (21:41)
[2018-04-27] MEDS: FLUTICASONE PROP 0.05% 16 GM NASAL SPRAY NS SCH (10:23)
[2018-04-27] MEDS: PRENATAL VITAMINS W/ FOLIC ACID TABLET (FP) PO SCH (10:23)
[2018-04-27] MEDS: NICOTINE 14 MG/24 HOURS TOPICAL PATCH TD SCH (10:23)
[2018-04-27] MEDS: hydrOXYzine PAMOATE 50 MG CAPSULE (FP) PO PRN (21:35)
[2018-04-27] MEDS: THIAMINE HCL 100 MG TABLET (FP) PO SCH (21:35)
[2018-04-28] MEDS: PRENATAL VITAMINS W/ FOLIC ACID TABLET (FP) PO SCH (10:45)
[2018-04-28] MEDS: FLUTICASONE PROP 0.05% 16 GM NASAL SPRAY NS SCH (10:45)
[2018-04-28] MEDS: NICOTINE 14 MG/24 HOURS TOPICAL PATCH TD SCH (10:45)
[2018-04-28] MEDS: THIAMINE HCL 100 MG TABLET (FP) PO SCH (22:09)
[2018-04-28] MEDS: hydrOXYzine PAMOATE 50 MG CAPSULE (FP) PO PRN (22:09)
[2018-04-29] MEDS: NICOTINE 14 MG/24 HOURS TOPICAL PATCH TD SCH (10:17)
[2018-04-29] MEDS: FLUTICASONE PROP 0.05% 16 GM NASAL SPRAY NS SCH (10:17)
[2018-04-29] MEDS: PRENATAL VITAMINS W/ FOLIC ACID TABLET (FP) PO SCH (10:18)
[2018-04-29] MEDS: THIAMINE HCL 100 MG TABLET (FP) PO SCH (21:40)
[2018-04-29] MEDS: hydrOXYzine PAMOATE 50 MG CAPSULE (FP) PO PRN (21:41)
[2018-04-30] MEDS: FLUTICASONE PROP 0.05% 16 GM NASAL SPRAY NS SCH (10:26)
[2018-04-30] MEDS: NICOTINE 14 MG/24 HOURS TOPICAL PATCH TD SCH (10:26)
[2018-04-30] MEDS: PRENATAL VITAMINS W/ FOLIC ACID TABLET (FP) PO SCH (10:26)
[2018-04-30] MEDS: THIAMINE HCL 100 MG TABLET (FP) PO SCH (21:42)
[2018-04-30] MEDS: hydrOXYzine PAMOATE 50 MG CAPSULE (FP) PO PRN (21:42)
[2018-05-01] MEDS: PRENATAL VITAMINS W/ FOLIC ACID TABLET (FP) PO SCH (10:42)
[2018-05-01] MEDS: FLUTICASONE PROP 0.05% 16 GM NASAL SPRAY NS SCH (10:43)
[2018-05-01] MEDS: NICOTINE 14 MG/24 HOURS TOPICAL PATCH TD SCH (10:43)
[2018-05-01] MEDS: hydrOXYzine PAMOATE 50 MG CAPSULE (FP) PO PRN (21:55)
[2018-05-01] MEDS: THIAMINE HCL 100 MG TABLET (FP) PO SCH (21:56)
[2018-05-02] MEDS: FLUTICASONE PROP 0.05% 16 GM NASAL SPRAY NS SCH (10:22)
[2018-05-02] MEDS: PRENATAL VITAMINS W/ FOLIC ACID TABLET (FP) PO SCH (10:22)
[2018-05-02] MEDS: NICOTINE 14 MG/24 HOURS TOPICAL PATCH TD SCH (10:23)
[2018-05-02] MEDS: THIAMINE HCL 100 MG TABLET (FP) PO SCH (21:32)
[2018-05-02] MEDS: hydrOXYzine PAMOATE 50 MG CAPSULE (FP) PO PRN (21:32)
[2018-05-03] MEDS: NICOTINE 14 MG/24 HOURS TOPICAL PATCH TD SCH (10:36)
[2018-05-03] MEDS: FLUTICASONE PROP 0.05% 16 GM NASAL SPRAY NS SCH (10:36)
[2018-05-03] MEDS: PRENATAL VITAMINS W/ FOLIC ACID TABLET (FP) PO SCH (10:36)
[2018-05-03] MEDS: THIAMINE HCL 100 MG TABLET (FP) PO SCH (21:49)
[2018-05-03] MEDS: hydrOXYzine PAMOATE 50 MG CAPSULE (FP) PO PRN (21:50)
[2018-05-04] MEDS: PRENATAL VITAMINS W/ FOLIC ACID TABLET (FP) PO SCH (10:19)
[2018-05-04] MEDS: FLUTICASONE PROP 0.05% 16 GM NASAL SPRAY NS SCH (10:19)
[2018-05-04] MEDS: NICOTINE 14 MG/24 HOURS TOPICAL PATCH TD SCH (10:19)
[2018-05-04] MEDS: THIAMINE HCL 100 MG TABLET (FP) PO SCH (21:54)
[2018-05-04] MEDS: hydrOXYzine PAMOATE 50 MG CAPSULE (FP) PO PRN (21:54)
[2018-05-05] MEDS: FLUTICASONE PROP 0.05% 16 GM NASAL SPRAY NS SCH (10:15)
[2018-05-05] MEDS: PRENATAL VITAMINS W/ FOLIC ACID TABLET (FP) PO SCH (10:15)
[2018-05-05] MEDS: NICOTINE 14 MG/24 HOURS TOPICAL PATCH TD SCH (10:15)
[2018-05-05] MEDS: THIAMINE HCL 100 MG TABLET (FP) PO SCH (21:51)
[2018-05-05] MEDS: hydrOXYzine PAMOATE 50 MG CAPSULE (FP) PO PRN (21:51)
[2018-05-06 06:55] VITALS: BP 115/79; PULSE 81; TEMP 98.4
--- NOTE | 2018-05-06 08:50 | PN ---
Psychiatric Progress Note Vital Signs: Vital Signs Period Temp Pulse Resp BP Sys/Abbott Pulse Ox Last 24 Hr 98.4 F 81 18-18 115/79 Date of Session: 05/06/18 Chief Complaint:: "Discharge" HPI: Pt. was admitted to for opiate dependence. ROS: Significant for hepatitis C and history of surgery for fracture right mandible in 2014. Current Medications: Active Medications Generic Name Dose Route Start Last Admin Trade Name Freq PRN Reason Stop Dose Admin Al Hydroxide/Mg Hydroxide 30 ml 04/07/18 16:24 Mylanta Oral Suspension - PO Q6H PRN DYSPEPSIA Eucalyptus/Menthol/Phenol/Sorbitol 1 each 04/07/18 16:24 Cepastat Lozenge - MM Q4H PRN SORE THROAT Fluticasone Propionate 1 spray 04/10/18 13:45 05/05/18 10:15 Flonase - NS Not Given DAILY DONNY Guaifenesin 10 ml 04/07/18 16:24 Robitussin Dm - PO Q6H PRN COUGH Hydroxyzine Pamoate 50 mg 04/07/18 16:24 05/05/18 21:51 Vistaril - PO 50 mg Q4H PRN Administration AGITATION Ibuprofen 400 mg 04/07/18 16:24 04/13/18 10:35 Motrin - PO 400 mg Q6H PRN Administration Pain Level 4-6 Loperamide HCl 4 mg 04/07/18 16:24 Imodium - PO Q6H PRN DIARRHEA Magnesium Citrate 300 ml 04/07/18 16:24 Citroma - PO Q48H PRN CONSTIPATION Magnesium Hydroxide 30 ml 04/07/18 16:24 Milk Of Magnesia - PO DAILY PRN CONSTIPATION Melatonin 5 mg 04/07/18 22:00 04/16/18 21:38 Melatonin PO 5 mg HS PRN Administration INSOMNIA Nicotine 14 mg 04/08/18 10:00 05/05/18 10:15 Nicoderm Patch - TD Not Given DAILY [facility] Nicotine Polacrilex 2 mg 04/07/18 16:25 Nicorette Gum - BUC Q2H PRN NICOTINE REPLACEMENT RX Multivit/Folic Acid/Iron 1 tab 04/08/18 10:00 05/05/18 10:15 Vitamins (Sjr) - PO Not Given DAILY [facility] Pseudoephedrine/Triprolidine 1 combo 04/07/18 16:24 04/13/18 10:35 Actifed - PO 1 combo TID PRN Administration NASAL CONGESTION Thiamine HCl 100 mg 04/07/18 22:00 05/05/18 21:51 Vitamin B1 - PO Not Given HS DONNY Medication(s) Change(s): No. Current Side Effect: No Lab tests ordered: No Lab tests reviewed: Yes Provider note:: Patient able to complete the rehabilitation program on 05/06/18. He has met his treatment goals and is able to identify behaviors that contribute to relapsing. Through participation of this program patient has learned the importance of changing his behaviors and the need for more structure in his life. Pt. will continue to address his issues at the [facility] in [place], [place]. Pt. was not accepting psychotrophic medications during his stay in rehab. Patient is stable for discharge on . Total face to face time:: 35 Mental Status Exam - Mental Status Exam Alert and Oriented to: Time, Place, Person Cognitive Function: Good Patient Appearance: Well Groomed Mood: Hopeful Affect: Appropriate, Mood Congruent Patient Behavior: Appropriate, Cooperative Speech Pattern: Clear, Appropriate Voice Loudness: Normal Thought Process: Intact, Goal Oriented Thought Disorder: Not Present Hallucinations: Denies Suicidal Ideation: Denies Homicidal Ideation: Denies Insight/Judgement: Good Sleep: Well Appetite: Good Muscle strength/Tone: Normal Gait/Station: Normal Psychiatric Treatment Plan - Problem List (1) Cocaine dependence Current Visit: Yes (2) Nicotine dependence Current Visit: Yes (3) Opioid dependence Current Visit: Yes (4) Substance-induced sleep disorder Current Visit: Yes
[2018-05-06] MEDS: NICOTINE 14 MG/24 HOURS TOPICAL PATCH TD SCH (10:54)
[2018-05-06] MEDS: FLUTICASONE PROP 0.05% 16 GM NASAL SPRAY NS SCH (10:54)
[2018-05-06] MEDS: PRENATAL VITAMINS W/ FOLIC ACID TABLET (FP) PO SCH (10:54)
== END 2018-05-06 11:45 | disposition home or self-care (01) | DRG 772 ==
LOC: YASAS 13:04 → Y5N 13:05
PROVIDERS: ADMIT Psychiatry & Neurology Psychiatry; ATTEND Psychiatry & Neurology Psychiatry
PROC: HZ42ZZZ Group Counseling for Substance Abuse Treatment, Cognitive-Behavioral (ICD-10-PCS; principal; 2018-04-07)
DX: F11.20 Opioid dependence, uncomplicated (principal); F14.20 Cocaine dependence, uncomplicated; F17.210 Nicotine dependence, cigarettes, uncomplicated; F19.282 Other psychoactive substance dependence with psychoactive substance-induced sleep disorder; B18.2 Chronic viral hepatitis C; Z87.81 Personal history of (healed) traumatic fracture